=== PATIENT | male | born 1960 | race Caucasian/White ===

== ENCOUNTER 2016-08-01 11:33 | Emergency (ER) | payer MEDICAID ==
[~2016-08-01] VITALS: Ht 172.7 cm; Wt 72.6 kg
--- NOTE | 2016-08-01 11:48 | NUR ---
AAOX3, CAME TO ER C/O FOREIGN BODY IN THROAT S/P EATING DINNER YESTERDAYS. RESP IS EVEN AND UNLABORED WITH NAD NOTED. SPEAKS IN FULL SENTENCES. SKIN IS WARM AND DRY. AWAITING MD FOR EVAL.
[2016-08-01 11:49] VITALS: BP 103/52
--- NOTE | 2016-08-01 12:03 | NUR ---
PATIENT TRANSPORTED FOR CT VIA WHEELCHAIR.
--- NOTE | 2016-08-01 12:29 | NUR ---
Patient eloped from facility. ER MD notified.
--- NOTE | 2016-08-01 12:30 | NUR ---
PATIENT SPIT ON THE FLOOR. THE PATIENT WAS VERBALLY ABUSIVE, CURSING THE STAFF.
== END 2016-08-01 12:33 | disposition left against medical advice (07) ==
LOC: ER 11:36
DX: T17.228A Food in pharynx causing other injury, initial encounter (principal); F17.210 Nicotine dependence, cigarettes, uncomplicated; X58.XXXA Exposure to other specified factors, initial encounter; Y93.89 Activity, other specified; Y92.89 Other specified places as the place of occurrence of the external cause; Y99.8 Other external cause status
CPT/HCPCS: 70490; 99284; A4606; Z7610

== ENCOUNTER 2018-08-17 17:26 | Emergency (ER) | payer MEDICAID, OTHER ==
[~2018-08-17] VITALS: Ht 170.2 cm; Wt 74.8 kg
--- NOTE | 2018-08-17 17:28 | NUR ---
PT BIBRA FOR ABD PAIN TODAY D/T ETOH; PT AAOX4, PT ON MONITOR, VSS, NAD NOTED, PENDING MD CALLEJAS
[2018-08-17] MEDS ORDERED: MORPHINE SULFATE INJ 2 MG/ML DISP.SYRIN IV ONE ×2 (18:00→20:00)
[2018-08-17] MEDS ORDERED: IV NS 0.9% 1,000 ML BAG IV ONE ×2 (18:00→19:00)
[2018-08-17] MEDS ORDERED: ONDANSETRON HCL/PF 4 MG/2 ML VIAL IVP ONE (18:00)
[2018-08-17] MEDS ORDERED: ONDANSETRON HCL/PF 4 MG/2 ML VIAL ONE ×2 (18:05→19:43)
[2018-08-17] MEDS ORDERED: MORPHINE SULFATE INJ 4 MG/ML DISP.SYRIN ONE ×2 (18:06→19:44)
[2018-08-17 18:08] LABS: EOSINOPHILS % (AUTO) 0.5 % (0.0-6.0); HEMATOCRIT 41 % (39-51); LYMPHOCYTES # (AUTO) 1.5 /CMM (0.8-4.8); LYMPHOCYTES % (AUTO) 36.4 % (20.0-44.0); MEAN CORPUSCULAR HGB CONC 35 g/dl (31.0-36.0); MEAN CORPUSCULAR VOLUME 98 fL (80-96); MONOCYTES # (AUTO) 0.4 /CMM (0.1-1.30); MONOCYTES % (AUTO) 8.5 % (2.0-12.0); NEUTROPHILS # (AUTO) 2.2 /CMM (1.8-8.9); NEUTROPHILS % (AUTO) 53.6 % (43.0-81.0); PLATELET COUNT (AUTO) 108 /CMM (150-450); RED BLOOD CELL COUNT(AUTO) 4.16 MIL/uL (4.5-6.0); WHITE BLOOD COUNT (AUTO) 4.2 K/uL (4.3-11.0)
[2018-08-17 18:19] LABS: CALCIUM, SERUM 8.1 mg/dL (8.5-10.1); CREATININE 0.7 mg/dL (0.6-1.3); POTASSIUM 3.8 mmol/L (3.5-5.1)
[2018-08-17 18:31] LABS: ALBUMIN 3.5 g/dL (3.4-5.0); BILIRUBIN,DIRECT 0.6 mg/dL (0.0-0.2); BILIRUBIN,TOTAL 1.2 mg/dL (0.2-1.0); TOTAL PROTEIN, SERUM 7.5 g/dL (6.4-8.2)
[2018-08-17] MEDS ORDERED: Magnesium 1 GM/2 ML VIAL IV ONE (19:00)
[2018-08-17] MEDS ORDERED: HYDR-3973 PO (19:05)
[2018-08-17] MEDS ORDERED: ALBU18HF2 IH (19:06)
[2018-08-17] MEDS ORDERED: FOLI1TAB16 PO (19:06)
--- NOTE | 2018-08-17 19:21 | NUR ---
PAGED INFORMATION TECHNOLOGY PROJECT MANAGER DR ASHLI CRAIG)
[2018-08-17 19:39] LABS: APPEARANCE,URINE Clear (CLEAR); BILIRUBIN,URINE MODERATE (NEGATIVE); BLOOD, URINE Trace-intact Ery/uL (NEGATIVE); COLOR,URINE Orange (YELLOW); KETONES,URINE 80 (NEGATIVE); LEUKOCYTE ESTERASE ,URINE Negative (NEGATIVE); NITRITE, URINE Negative (NEGATIVE); PH,URINE 6.5 (5.0-8.0); PROTEIN,URINE >=300 mg/dl (NEGATIVE); UGLUCOSE Negative (NEGATIVE); UROBILINOGEN,URINE >=8.0 EU/dL (0.2)
[2018-08-17] MEDS ORDERED: Magnesium 1GM/D5W 100ML PREMIX 100 ML IV ONE (19:43)
[2018-08-17 19:51] LABS: BACTERIA,URINE Rare /HPF (None Seen); SQUAMOUS EPITHELIAL CELL,UR Few /HPF (None Seen); WBC,URINE NONE SEEN /HPF (0-3)
[2018-08-17] MEDS ORDERED: Magnesium 1GM/D5W 100ML PREMIX PIGGYBACK IV ONE (20:00)
[2018-08-17] MEDS ORDERED: ONDANSETRON HCL/PF - ER 4 MG/2 ML VIAL IV ONE (20:00)
--- NOTE | 2018-08-17 20:16 | NUR ---
PT RECIEVED BED AT [facility] ([id number]). REPORT WILL BE CALLED TO
[2018-08-17 20:21] LABS: ALCOHOL, BLOOD 335 mg/dL (0-0)
[2018-08-17 20:25] LABS: ACETAMINOPHEN < 2 ug/ml (10-30)
--- NOTE | 2018-08-17 20:29 | NUR ---
TRANSPORT ETA 1HR
[2018-08-17 21:00] VITALS: BP 154/76
--- NOTE | 2018-08-17 21:42 | NUR ---
PT LEFT VIA [facility] AMBULANCE TO [facility]. PT LEFT IN STABLE CONDITION, PT NAD NOTED, VSS, REPORT WAS GIVEN TO MARIANO AT [facility]. REPORT GIVEN TO AMBULANCE STAFF.
== END 2018-08-17 22:55 | disposition short-term general hospital (02) ==
LOC: ER 17:30
DX: K85.20 Alcohol induced acute pancreatitis without necrosis or infection (principal); R33.9 Retention of urine, unspecified; E83.42 Hypomagnesemia; F10.10 Alcohol abuse, uncomplicated; J43.9 Emphysema, unspecified; F17.210 Nicotine dependence, cigarettes, uncomplicated; Z79.899 Other long term (current) drug therapy; Z87.19 Personal history of other diseases of the digestive system; Z59.0 Homelessness
CPT/HCPCS: 36415; 51702; 71045; 76700; 80048; 80076; 80305; 80307; 80329; 81001; 83690; 83735; 84484; 85025; 87086; 93005; 96361; 96365; 96375; 96376; 99285; G0480; J2270 ×2; J2405 ×2; J3475; J7030 ×2; 81000-TC

== ENCOUNTER 2018-10-24 07:04 | Emergency (ER) | payer OTHER ==
[~2018-10-24] VITALS: Ht 172.7 cm; Wt 72.6 kg
[~2018-10-24 07:04] MED LIST: ALBU18HF2 IH; FOLI1TAB16 PO; HYDR-3973 PO
--- NOTE | 2018-10-24 07:06 | NUR ---
[id number] FROM STREETS C/C "FEEL A SEIZURE COMING", ALSO C/O SOB AND DIZZINESS. TO ER BED 12, HOOKED TO MONITOR, CHANGED TO GOWN, PROVIDED W WARM BLANKET, SEIZURE PRECAUTIONS APPLIED, AWAITING MD CALLEJAS
--- NOTE | 2018-10-24 07:26 | NUR ---
DR YOUNG AT BEDSIDE
[2018-10-24] MEDS ORDERED: CHLORDIAZEPOXIDE HCL 25 MG CAPSULE ONE (07:36)
[2018-10-24] MEDS ORDERED: CHLORDIAZEPOXIDE HCL 25 MG CAPSULE PO ONE (08:00)
[2018-10-24] MEDS ORDERED: ALBUTEROL SULFATE 8 GM HFA.AER.AD IH ONE (08:00)
[2018-10-24 08:51] VITALS: BP 128/76
--- NOTE | 2018-10-24 08:51 | NUR ---
Patient discharged to home in stable condition. Written and verbal after care instructions given. Patient verbalizes understanding of instruction.
== END 2018-10-24 08:52 | disposition home or self-care (01) ==
LOC: ER 07:08
DX: F10.239 Alcohol dependence with withdrawal, unspecified (principal); J44.9 Chronic obstructive pulmonary disease, unspecified; F19.10 Other psychoactive substance abuse, uncomplicated; F22 Delusional disorders; R56.9 Unspecified convulsions; F17.200 Nicotine dependence, unspecified, uncomplicated; Y90.9 Presence of alcohol in blood, level not specified; Z59.0 Homelessness; Z87.19 Personal history of other diseases of the digestive system; Z85.46 Personal history of malignant neoplasm of prostate

== ENCOUNTER 2018-10-24 10:06 | Emergency (ER) | payer MEDICAID, OTHER ==
[~2018-10-24] VITALS: Ht 172.7 cm; Wt 72.6 kg
--- NOTE | 2018-10-24 10:10 | NUR ---
PT SELF PRESENT TO ED BED 13. ACTING BIZZARE. STATES SUICIDAL, STATING "THEY ARE OUT TO GET ME. MIGHT WELL ." PT WAS BIB BY [facility] EARLIER AND WAS DISCHARGE. NO ACTIVE PLAN. AWAITING MD CALLEJAS.
--- NOTE | 2018-10-24 10:15 | NUR ---
PT WANDED. PLACED ON SI PRECAUTION. AWAITING MD CALLEJAS.
[2018-10-24] MEDS ORDERED: OLANZAPINE 10 MG VIAL IM ONE ×2 (10:20→10:30)
[2018-10-24 10:40] LABS: BASOPHILS # (AUTO) 0.1 /CMM (0.0-0.2); BASOPHILS % (AUTO) 1.3 % (0.0-2.0); EOSINOPHILS % (AUTO) 0.9 % (0.0-6.0); HEMATOCRIT 43 % (39-51); HEMOGLOBIN 14.7 g/dL (13.5-17.5); LYMPHOCYTES # (AUTO) 2.2 /CMM (0.8-4.8); LYMPHOCYTES % (AUTO) 30.8 % (20.0-44.0); MEAN CORPUSCULAR HGB CONC 34 g/dl (31.0-36.0); MEAN CORPUSCULAR VOLUME 102 fL (80-96); MONOCYTES # (AUTO) 0.8 /CMM (0.1-1.30); MONOCYTES % (AUTO) 11.7 % (2.0-12.0); NEUTROPHILS # (AUTO) 3.9 /CMM (1.8-8.9); NEUTROPHILS % (AUTO) 55.3 % (43.0-81.0); PLATELET COUNT (AUTO) 252 /CMM (150-450); RED BLOOD CELL COUNT(AUTO) 4.24 MIL/uL (4.5-6.0)
[2018-10-24 10:52] LABS: CALCIUM, SERUM 9.4 mg/dL (8.5-10.1); CARBON DIOXIDE 22 mmol/L (21-32); CHLORIDE 98 mmol/L (98-107); CREATININE 1.6 mg/dL (0.6-1.3); GLUCOSE 107 mg/dL (74-106); POTASSIUM 3.7 mmol/L (3.5-5.1); SODIUM SERUM 135 mmol/L (136-145); UREA NITROGEN, BLOOD 27 mg/dL (7-18)
[2018-10-24 10:58] LABS: ALANINE AMINOTRANSFERASE 42 U/L (12-78); ALBUMIN 4.3 g/dL (3.4-5.0); ALCOHOL, BLOOD < 3 mg/dL (0-0); ALKALINE PHOSPHATASE 106 U/L (46-116); ASPARTATE AMINOTRANSFERASE 63 U/L (15-37); BILIRUBIN,DIRECT 0.3 mg/dL (0.0-0.2); SALICYLATE 4.1 mg/dL (2.8-20.0); TOTAL PROTEIN, SERUM 8.3 g/dL (6.4-8.2)
[2018-10-24 11:02] LABS: ACETAMINOPHEN 0 ug/ml (10-30)
--- NOTE | 2018-10-24 11:38 | NUR ---
CALLED CHEMISTRY ASSOCIATE ( ART ), 1 HOUR ETA
[2018-10-24 11:49] LABS: APPEARANCE,URINE Clear (CLEAR); BILIRUBIN,URINE MODERATE (NEGATIVE); BLOOD, URINE Trace-intact Ery/uL (NEGATIVE); KETONES,URINE 15 (NEGATIVE); LEUKOCYTE ESTERASE ,URINE Trace (NEGATIVE); NITRITE, URINE Negative (NEGATIVE); PH,URINE 5.5 (5.0-8.0); PROTEIN,URINE 100 mg/dl (NEGATIVE); UGLUCOSE Negative (NEGATIVE); UROBILINOGEN,URINE 0.2 EU/dL (0.2)
[2018-10-24 11:50] LABS: COLOR,URINE AMBER (YELLOW)
[2018-10-24 11:51] LABS: BACTERIA,URINE Few /HPF (None Seen); SQUAMOUS EPITHELIAL CELL,UR Rare /HPF (None Seen)
--- NOTE | 2018-10-24 13:07 | NUR ---
ART SHORT STORY WRITER AT BEDSIDE FOR PSYCH EVAL.
--- NOTE | 2018-10-24 14:56 | NUR ---
PT GOING TO UNIT II. ADMITTING DR. DR CLOUD, RN TO RN- [phone]
--- NOTE | 2018-10-24 15:38 | NUR ---
TRANSPORT AMBULANCE ETA [id number]
[2018-10-24 16:20] VITALS: BP 100/69
--- NOTE | 2018-10-24 16:40 | NUR ---
REPORT GIVEN TO BÁRBARA CLEMENTS TRANSPORTED TO [facility] IN STABLE CONDITION.
== END 2018-10-24 16:42 ==
LOC: ER 10:07
DX: R45.851 Suicidal ideations (principal); F22 Delusional disorders; F19.10 Other psychoactive substance abuse, uncomplicated; F17.210 Nicotine dependence, cigarettes, uncomplicated; Z59.0 Homelessness; Z79.899 Other long term (current) drug therapy; Z85.46 Personal history of malignant neoplasm of prostate
CPT/HCPCS: 36415; 80048; 80076; 80307; 80329; 81001; 85025; 87086; 93005; 96372; 99285; J3490; 80305; 81000-TC; G0480

== ENCOUNTER 2019-07-16 16:16 | Emergency (ER) | payer MEDICARE, OTHER ==
[~2019-07-16] VITALS: Ht 172.7 cm; Wt 70.3 kg
--- NOTE | 2019-07-16 16:17 | NUR ---
BIB RA 39,BY-STANDER CALLED ,C/O ABDOMINAL PAIN AND SAID THAT HE'S BEEN DRINKING VODKA, TO ER BED 14, HOOKED TO MONITOR, PROVIDED W WARM BLANKET, AWAITING MD CALLEJAS.
--- NOTE | 2019-07-16 16:24 | NUR ---
DR DAVIS AT BEDSIDE
--- NOTE | 2019-07-16 16:29 | NUR ---
DR DAVIS AT BEDSIDE FOR EVAL.
[2019-07-16] MEDS ORDERED: LIDOCAINE VISCOUS 2% UD 15 ML UDC MM ONE (16:30)
[2019-07-16] MEDS ORDERED: MAG HYDROX/AL HYDROX/SIMETH 30 ML UDC PO ONE (16:30)
[2019-07-16 16:45] LABS: BASOPHILS % (AUTO) 0.7 % (0.0-2.0); EOSINOPHILS % (AUTO) 2.1 % (0.0-6.0); HEMATOCRIT 49 % (39-51); HEMOGLOBIN 15.8 g/dL (13.5-17.5); LYMPHOCYTES # (AUTO) 3.2 /CMM (0.8-4.8); LYMPHOCYTES % (AUTO) 57.5 % (20.0-44.0); MEAN CORPUSCULAR HGB CONC 32 g/dl (31.0-36.0); MEAN CORPUSCULAR VOLUME 101 fL (80-96); MONOCYTES # (AUTO) 0.5 /CMM (0.1-1.30); MONOCYTES % (AUTO) 9.3 % (2.0-12.0); NEUTROPHILS # (AUTO) 1.7 /CMM (1.8-8.9); NEUTROPHILS % (AUTO) 30.4 % (43.0-81.0); PLATELET COUNT (AUTO) 144 /CMM (150-450); RED BLOOD CELL COUNT(AUTO) 4.84 MIL/uL (4.5-6.0); WHITE BLOOD COUNT (AUTO) 5.5 K/uL (4.3-11.0)
[2019-07-16 16:53] LABS: CALCIUM, SERUM 8.4 mg/dL (8.5-10.1); CREATININE 0.6 mg/dL (0.6-1.3); POTASSIUM 3.6 mmol/L (3.5-5.1)
[2019-07-16 16:58] LABS: ALBUMIN 3.5 g/dL (3.4-5.0); BILIRUBIN,DIRECT 0.1 mg/dL (0.0-0.2); BILIRUBIN,TOTAL 0.3 mg/dL (0.2-1.0); TOTAL PROTEIN, SERUM 7.9 g/dL (6.4-8.2)
[2019-07-16] MEDS ORDERED: LIDOCAINE VISCOUS 2% UD 15 ML UDC ONE (17:06)
[2019-07-16] MEDS ORDERED: MAG HYDROX/AL HYDROX/SIMETH 30 ML UDC ONE (17:06)
--- NOTE | 2019-07-16 19:16 | NUR ---
PT RESTING COMFORTABLY. VSS. PT AWAKE.
[2019-07-16] MEDS ORDERED: CHLORDIAZEPOXIDE HCL 25 MG CAPSULE ONE (23:36)
--- NOTE | 2019-07-16 23:54 | NUR ---
Patient discharged to home in stable condition. Written and verbal after care instructions given. Patient verbalizes understanding of instruction. Pt ambulated with steady gait. Pt signed homeless discharge.
[2019-07-16 23:56] VITALS: BP 121/78
[2019-07-17] MEDS ORDERED: CHLORDIAZEPOXIDE HCL 25 MG CAPSULE PO ONE
== END 2019-07-16 23:57 | disposition home or self-care (01) ==
LOC: ER 16:16
DX: R10.13 Epigastric pain (principal); F10.20 Alcohol dependence, uncomplicated; Y90.9 Presence of alcohol in blood, level not specified; Z60.2 Problems related to living alone; Z85.46 Personal history of malignant neoplasm of prostate
CPT/HCPCS: 36415; 80048-TC; 80076-TC; 83690-TC; 85025-TC

== ENCOUNTER 2020-08-08 01:26 | Inpatient (IN) | payer MEDICARE, OTHER ==
[~2020-08-08] VITALS: Ht 172.7 cm; Wt 71.3 kg
--- NOTE | 2020-08-08 01:30 | NUR ---
pt bibRA c/o cp and sob. Per ems, pt had low saturation on scene. Pt aaox4 breathing evenly and rapidly. Pt brought in on 15L via NRB; saturated 92%. Pt is juandiced,skin war, dry, and intact. 18g left ac initiated CHEMICAL WEIGHER. Pt attached to night monitor and pox. pt placed in sitting position for comfort and ease of breathing. Pt given blanket and call light within reach
[2020-08-08] MEDS ORDERED: ALBUTEROL FS 2.5 MG/3 ML VIAL.NEB CONTNEB STA (01:32)
[2020-08-08] MEDS ORDERED: IPRATROPIUM NEB FS 0.5 MG/2.5 ML AMPUL.NEB NEB STA (01:32)
--- NOTE | 2020-08-08 01:44 | NUR ---
COVID SWAB SENT
--- NOTE | 2020-08-08 01:44 | NUR ---
blood and blood cultures obtained and sent to lab
[2020-08-08] MEDS ORDERED: VANCOMYCIN 1 GM VIAL ONE (01:45)
[2020-08-08] MEDS ORDERED: predniSONE 20 MG TABLET ONE (01:46)
[2020-08-08] MEDS ORDERED: PIPERACILLIN /TAZOBACTAM 3.375 G VIAL IV ONE (01:46)
[2020-08-08] MEDS ORDERED: IPRATROPIUM NEB FS 0.5 MG/2.5 ML AMPUL.NEB ONE (01:48)
[2020-08-08] MEDS ORDERED: ALBUTEROL FS 2.5 MG/3 ML VIAL.NEB ONE (01:48)
--- NOTE | 2020-08-08 01:50 | NUR ---
rt at bedside
--- NOTE | 2020-08-08 01:50 | NUR ---
Rafita raymond in [facility] - 08/08/20 at 0218 by SAM farnazay at bedside
[2020-08-08 01:58] LABS: BASOPHILS # (AUTO) 0.2 /CMM (0.0-0.2); EOSINOPHILS % (AUTO) 0.7 % (0.0-6.0); HEMATOCRIT 38 % (39-51); HEMOGLOBIN 12.7 g/dL (13.5-17.5); LYMPHOCYTES # (AUTO) 2.6 /CMM (0.8-4.8); LYMPHOCYTES % (AUTO) 22.3 % (20.0-44.0); MEAN CORPUSCULAR HGB CONC 34 g/dl (31.0-36.0); MEAN CORPUSCULAR VOLUME 110 fL (80-96); MONOCYTES # (AUTO) 1.6 /CMM (0.1-1.30); MONOCYTES % (AUTO) 13.9 % (2.0-12.0); NEUTROPHILS % (AUTO) 61.1 % (43.0-81.0); PLATELET COUNT (AUTO) 124 /CMM (150-450); RED BLOOD CELL COUNT(AUTO) 3.43 MIL/uL (4.5-6.0); WHITE BLOOD COUNT (AUTO) 11.5 K/uL (4.3-11.0)
[2020-08-08] MEDS ORDERED: IV NS 0.9% 1,000 ML BAG IV ONE (02:00)
[2020-08-08] MEDS ORDERED: VANCOMYCIN 1 GM in IV D5W 250 ML IV ONE (02:00)
[2020-08-08] MEDS ORDERED: predniSONE 20 MG TABLET PO ONE (02:00)
[2020-08-08] MEDS ORDERED: PIPERACILLIN /TAZOBACTAM 3.375 G in IV D5W 50 ML IV ONE (02:00)
[2020-08-08 02:08] LABS: CALCIUM, SERUM 6.5 mg/dL (8.5-10.1); CARBON DIOXIDE 17 mmol/L (21-32); CHLORIDE 96 mmol/L (98-107); CREATININE 2.3 mg/dL (0.6-1.3); GLUCOSE 142 mg/dL (74-106); POTASSIUM 3.2 mmol/L (3.5-5.1); SODIUM SERUM 131 mmol/L (136-145); UREA NITROGEN, BLOOD 24 mg/dL (7-18)
--- NOTE | 2020-08-08 02:17 | NUR ---
xray at bedside
[2020-08-08 02:25] LABS: ALANINE AMINOTRANSFERASE 49 U/L (12-78); ALBUMIN 2.1 g/dL (3.4-5.0); ALKALINE PHOSPHATASE 198 U/L (46-116); ASPARTATE AMINOTRANSFERASE 213 U/L (15-37); BILIRUBIN,DIRECT 25.6 mg/dL (0.0-0.2); BILIRUBIN,TOTAL 35.7 mg/dL (0.2-1.0); TOTAL PROTEIN, SERUM 7.1 g/dL (6.4-8.2)
--- NOTE | 2020-08-08 03:17 | NUR ---
MD WALTON SPEAKING WITH PROMISE
--- NOTE | 2020-08-08 03:26 | NUR ---
gave report to kolby Arriaga for marry
[2020-08-08] MEDS ORDERED: MAG HYDROX/AL HYDROX/SIMETH 30 ML UDC PO PRN (03:30)
[2020-08-08] MEDS ORDERED: ACETAMINOPHEN 325 MG TABLET PO PRN (03:30)
[2020-08-08] MEDS ORDERED: ZOLPIDEM TARTRATE 5 MG TABLET PO PRN (03:30)
[2020-08-08] MEDS ORDERED: HYDROCODONE/APAP 5/325MG TABLET PO PRN (03:30)
[2020-08-08] MEDS ORDERED: IV NS 0.9% 1,000 ML IV PRN (03:30)
[2020-08-08] MEDS ORDERED: POTASSIUM CHLORIDE 20 MEQ TAB.PRT.SR PO ONE ×2 (03:30→07:00)
[2020-08-08] MEDS ORDERED: ONDANSETRON HCL/PF 4 MG/2 ML VIAL IVP PRN (03:30)
[2020-08-08 04:00] VITALS: BP_SYST 128; BP_DIAS 71; BP_DIAS 79
--- NOTE | 2020-08-08 04:00 | NUR ---
ELECTRONIC INTEGRATED SYSTEMS MECHANIC NOTES SACRAL AND SCROTAL REDNESS FORM FECES NOTED,CLEANED WITH SOAP AND WATER AND APPLIED SKIN BARRIER PER PROTOCOL
--- NOTE | 2020-08-08 04:00 | NUR ---
HEEL CEMENTER MACHINESACK SORTER NOTES RECEIVED FROM ER PER TIAN,ALERT,ORIENTED X3,BREATHING NON LABORED,WITH DIAGNOSIS OF COPD EXACERBATION,SALINE LOCK LEFT AC INTACT AND PATENT.ABDOMEN DISTENDED,SKIN APPEARS YELLOWISH.WITHE REDNESS ON SACRAL AND SCROTAL AREA FROM FECES.FALL RISK,USE CANE FOR AMBULATION.BED ALARM TRIGGERED,BED ON LOWEST POSITION AND LOCKED.CALL LIGHT IN REACH,NEEDS ANTICIPATED.
--- NOTE | 2020-08-08 04:22 | NUR ---
FINAL INSPECTOR SHUTTLE NOTES SOLU-MEDROL 60MG IV GIVEN ORDERED
--- NOTE | 2020-08-08 04:22 | NUR ---
SPECIAL EDUCATION SUPERINTENDENT NOTES STARTED ON IVF NS AT 75ML/HR RATE,INFUSING VIA IV PUMP.
[2020-08-08] MEDS: methylPREDNISolone SOD SUCC 125 MG/2ML VIAL IV SCH ×3 (04:23→20:21)
--- NOTE | 2020-08-08 04:23 | NUR ---
FOOD SAFETY MANAGER NOTES K LEVEL 3.2,K DUR 40MG PO GIVEN,TAKEN WELL
[2020-08-08 05:00] LABS: BASOPHILS % (AUTO) 0.8 % (0.0-2.0); EOSINOPHILS % (AUTO) 0.1 % (0.0-6.0); HEMATOCRIT 36 % (39-51); HEMOGLOBIN 12.6 g/dL (13.5-17.5); LYMPHOCYTES # (AUTO) 0.4 /CMM (0.8-4.8); LYMPHOCYTES % (AUTO) 7.4 % (20.0-44.0); MEAN CORPUSCULAR HGB CONC 35 g/dl (31.0-36.0); MEAN CORPUSCULAR VOLUME 109 fL (80-96); MONOCYTES # (AUTO) 0.6 /CMM (0.1-1.30); MONOCYTES % (AUTO) 10.7 % (2.0-12.0); NEUTROPHILS # (AUTO) 4.9 /CMM (1.8-8.9); PLATELET COUNT (AUTO) 79 /CMM (150-450); RED BLOOD CELL COUNT(AUTO) 3.33 MIL/uL (4.5-6.0)
[2020-08-08 05:09] VITALS: BP 128/71
--- NOTE | 2020-08-08 05:25 | NUR ---
PET COUNSELOR NOTES RELAYED BY DAY CARE ASSISTANT,LACTIC ACID 8.6 AFTER GIVEN 2 LITERS OF NS IN ER.HOSPITALIST HARRIS DEJESUS MADE AWARE,NO NEW ORDER.
[2020-08-08 05:27] LABS: BILIRUBIN,TOTAL 33.7 mg/dL (0.2-1.0); CREATININE 2.3 mg/dL (0.6-1.3); PHOSPHORUS 2.6 mg/dL (2.5-4.9); TOTAL PROTEIN, SERUM 6.7 g/dL (6.4-8.2)
[2020-08-08 05:33] LABS: POTASSIUM 2.4 mmol/L (3.5-5.1)
--- NOTE | 2020-08-08 05:35 | NUR ---
FLATLOCK SEWING MACHINE OPERATOR NOTES VON FROM THE LAB CALLED,POTASSIUM LEVEL IS 2.4,MAGNESIUM LEVEL 1.0,CALCIUM 6.0.CRITICAL LAB RESULT RELAYED TO HOSPITALIST HARRIS,WITH NEW ORDERS NOTED AND CARRIED OUT.
[2020-08-08 05:43] LABS: LYMPHOCYTES % (MANUAL) 3 % (16-48); MONOCYTES % (MANUAL) 12 % (0-11.0); NEUTROPHILS % (MANUAL) 85 (42-76)
[2020-08-08 05:58] LABS: THYROID STIMULATING HORMONE 1.176 uIU/mL (0.358-3.74)
[2020-08-08] MEDS ORDERED: PIPERACILLIN /TAZOBACTAM 3.375 G in IV D5W 50 ML IV SCH (06:00)
--- NOTE | 2020-08-08 06:05 | NUR ---
CAN LINE EXAMINER NOTES BLOOD DRAW FOR REPEAT K LEVEL DONE BY LAB,AWAITING FOR RESULT.
[2020-08-08] MEDS: Magnesium 1GM/D5W 100ML PREMIX 100 ML IV SCH ×4 (06:16→10:02)
[2020-08-08] MEDS ORDERED: Z GUARD REMEDY 2 OZ OINT TP PRN (06:30)
--- NOTE | 2020-08-08 06:31 | NUR ---
WELLNESS AMBASSADOR CLOSING NOTES PATIENT IN BED, EYES CLOSED. A/OX4. ABLE TO MAKE NEEDS KNOWN. NO S/S OF DISTRESS NOTED. TOLERATING 4LPM OF OXYGEN VIA NC SATURATING 92%. PATIENT PAIN RELIEVED AFTER NON-PHARMACOLOGICAL INTERVENTION. ALL NEEDS ATTENDED. ALL ORDERED MEDS CARRIED OUT. TELE MONITOR READING SR 84 BPM. SAFETY PRECAUTIONS KEPT IN PLACE THE WHOLE TIME: BED IN LOWEST, LOCKED POSITION; CALL LIGHT WITHIN REACH. PICTURES TAKEN. WILL ENDORSE CARE TO MORNING RN.
--- NOTE | 2020-08-08 06:35 | NUR ---
COKE DRAWER HAND NOTES RELAYED BY CONSERVATION OR HERITAGE ARCHITECT VON,REPEAT K LEVEL IS 3.2,HOSPITALIST HARRIS MADE AWARE WITH NEW ORDER NOTED AND CARRIED OUT.
--- NOTE | 2020-08-08 06:59 | NUR ---
MARKETING PROGRAM MANAGER NOTES SECOND SALINE LOCK PLACE ON RIGHT FORE ARM #22,FLUSHED WITH NS AND KEPT PATENT.
--- NOTE | 2020-08-08 07:33 | NUR ---
IN STORE DEMONSTRATOR OPENING NOTES PATIENT IN BED, RESTING. A/OX4. ABLE TO MAKE NEEDS KNOWN AND AMBULATORY. NO S/S OF DISTRESS NOTED. TOLERATING 4LPM OF OXYGEN VIA NC SATURATING 92%. PATIENT IS SINUS RHYTHM READING 84 BPM. PATIENT'S SKIN INTACT. PATIENT HAS R AC 18 GAUGE PATENT AND INTACT. SAFETY PRECAUTIONS IN PLACE: BED IN LOWEST, LOCKED POSITION; CALL LIGHT WITHIN REACH. WILL CONTINUE TO MONITOR.
[2020-08-08 07:48] VITALS: BP 126/71
[2020-08-08] MEDS: ALBUTEROL FS 2.5 MG/0.5 ML VIAL.NEB NEB SCH ×4 (07:48→19:55)
[2020-08-08] MEDS: IPRATROPIUM NEB FS 0.5 MG/2.5 ML AMPUL.NEB NEB SCH ×4 (07:48→19:55)
[2020-08-08] MEDS: THIAMINE HCL 100 MG TABLET PO SCH (08:32)
[2020-08-08] MEDS: NICOTINE PATCH (21MG) 21 MG PATCH.TD24 TD SCH (08:32)
[2020-08-08] MEDS: MULTIVITAMINS,THERAGRAN 1 UDTAB TABLET PO SCH (08:32)
[2020-08-08] MEDS: FOLIC ACID 1 MG TABLET PO SCH (08:32)
[2020-08-08] MEDS: PIPERACILLIN /TAZOBACTAM 3.375 G in IV D5W 100 ML IV SCH ×2 (09:07→16:22)
--- NOTE | 2020-08-08 09:48 | NUR ---
RN NOTES PATIENT WAS SEEN BY DR. MONTEMAYOR W/ ORDER FOR US-GUIDED PARACENTESIS SECONDARY TO ASCITES; PROCEDURE WAS EXPLAINED TO PATIENT, VERBALIZED UNDERSTANDING AND REASON FOR PROCEDURE, AND CONSENT FORM WAS SIGNED.
[2020-08-08] MEDS: ALBUMIN 25% 25 GM in PREMIX 1 EA IV SCH ×2 (11:35→18:03)
--- NOTE | 2020-08-08 13:13 | NUR ---
contacted radiologist power distribution engineer, Dr. Markham. As per procedure has to be postponed as INR is elevated
--- NOTE | 2020-08-08 13:18 | NUR ---
RN NOTES RECEIVED A CALL FROM RADIOLOGY. THEY STATED THAT THE PARACENTESIS GUIDED ULTRASOUND COULD NOT BE PERFORMED DUE TO INR RESULT. WILL WAIT TILL LABS STABILIZE. WILL INFORM PATIENT.
[2020-08-08 16:20] VITALS: BP 145/85
--- NOTE | 2020-08-08 16:36 | NUR ---
CALLED RN TO NOTIFY THE ELEVATED CREATININE 2.[address] PULMONARY ANGIOGRAM WITH CONTRAST.
--- NOTE | 2020-08-08 18:47 | NUR ---
MS RN CLOSING NOTES PATIENT IN BED, RESTING. A/OX4. ABLE TO MAKE NEEDS KNOWN AND AMBULATORY. NO S/S OF DISTRESS NOTED. TOLERATING 4LPM OF OXYGEN VIA NC SATURATING 92%. PATIENT'S SKIN INTACT NOTED WITH BUTTOCK/ SCROTUM REDNESS AND LEFT SHOULDER REDNESS. PATIENT HAS L AC 18 GAUGE PATENT AND INTACT. INFUSING ZOSYN WHICH WILL BE DONE @ 820 WILL ENDORSE TO NEXT SHIFT. NEEDS MET THROUGHOUT SHIFT. SAFETY PRECAUTIONS IN PLACE: BED IN LOWEST, LOCKED POSITION; CALL LIGHT WITHIN REACH. WILL ENDORSE TO NEXT SHIFT
--- NOTE | 2020-08-08 19:47 | NUR ---
INTERNAL WHOLESALER OPENING NOTES PATIENT IN BED, RESTING. A/OX4. BROTHER IN THE ROOM WITH PATIENT AND DROPPED OFF SOME BELONGINGS AND VALUABLES. KEPT AND LOCKED AWAY. ABLE TO MAKE NEEDS KNOWN. NO S/S OF DISTRESS NOTED. TOLERATING 4LPM OF OXYGEN VIA NC. PATIENT HAS R AC 18 GAUGE PATENT AND INTACT. SAFETY PRECAUTIONS IN PLACE: BED IN LOWEST, LOCKED POSITION; CALL LIGHT WITHIN REACH. WILL CONTINUE TO MONITOR.
[2020-08-08 20:00] VITALS: BP 155/89
--- NOTE | 2020-08-08 20:00 | NUR ---
MS RN NOTES FRIEND NAME KRISTOPHER BATES AT BEDSIDE,BROUGHT BACK TO HOME SOME OF PATIENT BELONGINGS INCLUDING WALLET,SCHMIDT AND FOUR CARDS( SSS,AARP,DL,INSURANCE CARD) PUT IN SAFE AT NURSING FOUNTAIN ROLLER ASSEMBLER OFFICE.
[2020-08-08 20:12] VITALS: BP 155/89
--- NOTE | 2020-08-08 20:15 | NUR ---
MS RN NOTES RT AT BEDSIDE ADMINISTERING BREATHING TREATMENT SCHEDULED.
[2020-08-08] MEDS: MORPHINE SULFATE INJ 2 MG/ML DISP.SYRIN IV PRN (20:32)
--- NOTE | 2020-08-08 20:32 | NUR ---
MS RN NOTES C/O ABDOMINAL PAIN 8/10 ON PAIN SCALE,MEDICATED WITH MORPHINE 2MG IV ORDERED FOR SEVERE PAIN.O2 SAT 99%,BP 155/84.
[2020-08-09] VITALS (19 sets, daily range): BP systolic 79–118; BP diastolic 52–89
[2020-08-09] MEDS: PIPERACILLIN /TAZOBACTAM 3.375 G in IV D5W 100 ML IV SCH ×3 (00:38→17:24)
[2020-08-09] MEDS: VANCOMYCIN 1 GM in IV D5W 250 ML IV SCH (01:39)
[2020-08-09] MEDS: LORAZEPAM INJ 2 MG/ML VIAL IV PRN (03:06)
--- NOTE | 2020-08-09 03:13 | NUR ---
MS RN NOTES PER PATIENT HE CANNOT SLEEP AND ANXIOUS. REQUESTED SLEEP MEDICATION. GIVEN ATIVEN AT 0310. WILL REASSESS AND CONTINUE TO MONITOR.
[2020-08-09] MEDS: ALBUMIN 25% 25 GM in PREMIX 1 EA IV SCH (03:38)
[2020-08-09] MEDS: methylPREDNISolone SOD SUCC 125 MG/2ML VIAL IV SCH ×3 (04:56→21:12)
[2020-08-09 06:29] LABS: BASOPHILS % (AUTO) 0.2 % (0.0-2.0); HEMATOCRIT 36 % (39-51); HEMOGLOBIN 12.2 g/dL (13.5-17.5); LYMPHOCYTES # (AUTO) 0.4 /CMM (0.8-4.8); LYMPHOCYTES % (AUTO) 6.2 % (20.0-44.0); MEAN CORPUSCULAR HGB CONC 34 g/dl (31.0-36.0); MEAN CORPUSCULAR VOLUME 110 fL (80-96); MONOCYTES # (AUTO) 0.5 /CMM (0.1-1.30); MONOCYTES % (AUTO) 7.4 % (2.0-12.0); NEUTROPHILS # (AUTO) 5.7 /CMM (1.8-8.9); NEUTROPHILS % (AUTO) 86.2 % (43.0-81.0); PLATELET COUNT (AUTO) 60 /CMM (150-450); RED BLOOD CELL COUNT(AUTO) 3.25 MIL/uL (4.5-6.0); WHITE BLOOD COUNT (AUTO) 6.6 K/uL (4.3-11.0)
--- NOTE | 2020-08-09 06:44 | NUR ---
MS RN CLOSING NOTES PATIENT IN BED WITH EYES CLOSED. BARELY SLEPT. ATIVAN GIVEN PRN. PATIENT ABLE TO MAKE NEEDS KNOWN. NO S/S OF RESPIRATORY DISTRESS. TOLERATING 6LPM OF OXYGEN VIA NC. NO C/O PAIN. PATIENT BEEN COMPLAINING OF PAIN/ FULLNESS IN THE ABDOMEN, GIVEN MORPHINE ONE TIME AT 2031. ALL SCHEDULED MEDS ADMINISTERED. ALL NEEDS ATTENDED. SAFETY PRECAUTIONS KEPT ALL TIME: BED IN LOWEST AND LOCKED POSITION, CALL LIGHT WITHIN REACH. NO SIGNIFICANT CHANGES SINCE LAST SHIFT. WILL ENDORSE CARE TO MORNING NURSE.
[2020-08-09] MEDS: ALBUTEROL FS 2.5 MG/0.5 ML VIAL.NEB NEB SCH ×4 (07:35→19:39)
[2020-08-09] MEDS: IPRATROPIUM NEB FS 0.5 MG/2.5 ML AMPUL.NEB NEB SCH ×4 (07:35→19:39)
[2020-08-09 07:51] LABS: ALBUMIN 2.8 g/dL (3.4-5.0); BILIRUBIN,DIRECT 25.3 mg/dL (0.0-0.2); BILIRUBIN,TOTAL 36.7 mg/dL (0.2-1.0); CALCIUM, SERUM 7.1 mg/dL (8.5-10.1); CREATININE 2.3 mg/dL (0.6-1.3); PHOSPHORUS 2.3 mg/dL (2.5-4.9); POTASSIUM 3.1 mmol/L (3.5-5.1); TOTAL PROTEIN, SERUM 6.7 g/dL (6.4-8.2)
--- NOTE | 2020-08-09 08:00 | NUR ---
RN OPENING NOTE PATIENT ASLEEP IN BED. AROUSABLE TO HEAVY TOUCH. DROWSINESS NOTED. CURRENTLY WITH 6L O2 VIA NC. NO RESPIRATORY DISTRESS PRESENT. ON BEDREST WITH DIAPER PRESENT. SACRAL REDNESS PRESENT. IV PRESENT. SAFETY MEASURES IN PLACE. SIDE RAILS RAISED. BED LOWERED. CALL LIGHT WITHIN REACH. WILL CONTINUE TO MONITOR.
[2020-08-09 08:21] LABS: ABG BASE EXCESS -7.5 mmol/L; ABG OXYGEN SATURATION 99.1 % (92.0-98.5); ABG PCO2 21.6 mmHg (35.0-45.0); ABG PH 7.448 (7.350-7.450); ABG PO2 135.6 mmHg (75.0-100.0); AaDO2 67.3 mmHg; COHb 1.6 % (0.5-1.5); MetHb 0.3 % (0.0-1.5); O2Hb 97.2 % (94.0-97.0); SITE, ABG Right Radial; VENT MODE, BG 3L NC
[2020-08-09] MEDS ORDERED: ADENOSINE 6 MG/2 ML VIAL ONE (08:23)
--- NOTE | 2020-08-09 08:38 | NUR ---
NEWSPERSON NOTE PATIENT TRANSFERRED TO ICU. HR OF 170, MONITOR READING OF SVT. MD NOTIFIED. PATIENT TRANSFERRED TO BED 261-1 VIA PROTOCOL. REPORT GIVEN TO ICU NURSE FOR CECILIO.
[2020-08-09] MEDS: THIAMINE HCL 100 MG TABLET PO SCH (08:58)
[2020-08-09] MEDS: FOLIC ACID 1 MG TABLET PO SCH (08:58)
[2020-08-09] MEDS: MULTIVITAMINS,THERAGRAN 1 UDTAB TABLET PO SCH (08:58)
[2020-08-09] MEDS: NICOTINE PATCH (21MG) 21 MG PATCH.TD24 TD SCH (08:59)
--- NOTE | 2020-08-09 09:00 | NUR ---
ICU/RN PT TRANSFERED FROM M/S UNIT. WITH HR-180 BPM SVT.ADENOSINE 1 DOSE GIVEN ORDERED. EKG DONE .PT IS SINUS TACHYCARDIA 105 NOW.PT IS AWAKE ,CONFUSED.NEW PERIFERAL IV INSERTED.F/C INSERTED.NO URINE OUTPUT.PT IS ON 3L N/C SAT O2-91-93%.BP STABLE ,AFEBRILE.NO PAIN REPORTED AT THIS TIME.UNABLE TO SWALLOW AM MEDS .REDNESS ON RAFAT AREA AND LOWER BACK NOTED.LABS REVIEW. NOTIFIED.NEW ORDERS RECEIVED.CONTINUE TO MONITOR.
[2020-08-09 09:18] LABS: SERUM AMMONIA 99 umol/L (11-32)
[2020-08-09] MEDS: POTASSIUM CL. PREMIX PERIPHER. 50 ML IV SCH ×3 (10:29→12:23)
--- NOTE | 2020-08-09 10:51 | NUR ---
WOUND CARE CONSULT: PT PRESENTS WITH RASH/REDNESS TO SCROTUM AND PERINEUM, PRESENT ON ADMISSION. PT NOTED TO HAVE VERY JAUNDICED SKIN. RECOMMENDATIONS MADE FOR SKIN PROTECTION. DISCUSSED WITH NURSING STAFF. PT IS ON [facility] BED. IN AGREEMENT WITH PLAN OF CARE. Addendum: 08/09/20 at 1053 by JEWEL BLUM WNDNU Amended: Links added.
[2020-08-09] MEDS: CLOTRIMAZOLE 1% 15 GM TUBE TP SCH (11:46)
[2020-08-09] MEDS ORDERED: K PHOS NEUTRAL 250 MG TABLET PO ONE (12:00)
[2020-08-09] MEDS: IV NS 0.9% 1,000 ML IV PRN (12:25)
--- NOTE | 2020-08-09 13:38 | NUR ---
ICU/RN POTASSIUM IV REPLACED ORDERED.NO URINE OUTPUT.
--- NOTE | 2020-08-09 16:00 | NUR ---
ICU/RN NEW F/C PLACED WITH BILE COLOR URINE OUTPUT .PM CARE PROVIDED.TALK TO THE FATHER MAIDA PATEL.HE IS AWARE OF PATIENT CRITICAL CONDITION AND POOR PROGNOSIS .PLACE HIM TO DNR/DNI CODE STATUS. MD NOTIFIED.PT IS LETHARGIC.OPEN HIS EYES NOT FOLLOWS COMMAND. CONTINUE MONITORING.
[2020-08-09 19:12] LABS: CREATININE, URINE 125.3 MG/DL (30.0-125.0)
[2020-08-09 19:25] LABS: BILIRUBIN,URINE LARGE (NEGATIVE); COLOR,URINE AMBER (YELLOW); LEUKOCYTE ESTERASE ,URINE NEGATIVE (NEGATIVE); NITRITE, URINE NEGATIVE (NEGATIVE); PH,URINE 6.5 (5.0-8.0); PROTEIN,URINE TRACE mg/dl (NEGATIVE); UGLUCOSE NEGATIVE (NEGATIVE)
--- NOTE | 2020-08-09 19:30 | NUR ---
RN NOTE RECEIVED PT IN BED, OPEN EYES NOT FOLLOWING ANY COMMANDS. ON O2 VIA NC AT 3L. NO SIGNS OF DISTRESS NOTED. HOB ELEVATED. PT SKIN JAUNDICE. NO SIGNS OF PAIN OR DISCOMFORT. NS RUNNING AT 75 ML/HR. IV PATENT AND INTACT. WITH MADRID CATH IN PLACE, WITH DARK YELLOW/TONY URINE OUTPUT. ALL SAFETY MEASURES IMPLEMENTED. WILL CONTINUE TO MONITOR.
[2020-08-09 19:32] LABS: BACTERIA,URINE Few /HPF (None Seen); SQUAMOUS EPITHELIAL CELL,UR Few /HPF (None Seen); WBC,URINE 0-2 /HPF (0-3)
[2020-08-09 19:33] LABS: COARSE GRANULAR CASTS,URINE Few /LPF (None Seen); EOSINOPHIL,URINE None Seen; HYALINE CASTS, URINE Few /LPF (None Seen)
[2020-08-10] VITALS (32 sets, daily range): BP systolic 83–143; BP diastolic 53–88
--- NOTE | 2020-08-10 00:51 | NUR ---
RN NOTE PT O2 SAT AT 87-88% ON 3L NC. NO SIGNS OF DISTRESS NOTED. RT NOTIFIED, RT CHANGED O2 TO VENTURI MASK AT 12L, 40%. WITH O2 SAT OF 90%.
[2020-08-10] MEDS: IV NS 0.9% 1,000 ML IV PRN ×2 (00:57→17:37)
[2020-08-10] MEDS: PIPERACILLIN /TAZOBACTAM 3.375 G in IV D5W 100 ML IV SCH ×3 (01:23→16:28)
[2020-08-10] MEDS: VANCOMYCIN 1 GM in IV D5W 250 ML IV SCH (02:45)
--- NOTE | 2020-08-10 04:40 | NUR ---
RN NOTE PT WENT TO SVT WITH HR OF 177 AFTER THEY DID CXRAY AT BEDSIDE. BP 118/76. VETERINARY SCIENCE TEACHER RESISTANCE MACHINE WELDER SETTER CHIP NOTIFIED REGARDING PT CONDITION ALSO NOTIFIED THAT PPT HAD EPISODE OF SVT YESTERDAY. ROMELIA SAUNDERS ORDERED METOPROLOL 5MG IVP AND ATIVAN 1MG IVP X 1 NOW. ORDER NOTED AND CARRIED OUT. CHARGE NURSE MADE AWARE. WILL CONTINUE TO MONITOR.
[2020-08-10] MEDS ORDERED: METOPROLOL TARTRATE INJ 5 MG/5 ML AMPUL IVP ONE (04:45)
[2020-08-10] MEDS ORDERED: LORAZEPAM INJ 2 MG/ML VIAL IV ONE (04:45)
[2020-08-10] MEDS: methylPREDNISolone SOD SUCC 125 MG/2ML VIAL IV SCH ×3 (04:52→20:04)
[2020-08-10 05:08] LABS: PTH, INTACT 119 pg/mL (15-65)
[2020-08-10 05:33] LABS: CALCIUM, SERUM 6.8 mg/dL (8.5-10.1); CREATININE 2.1 mg/dL (0.6-1.3); PHOSPHORUS 1.3 mg/dL (2.5-4.9); POTASSIUM 3.1 mmol/L (3.5-5.1)
--- NOTE | 2020-08-10 05:46 | NUR ---
RN NOTE METOPROLOL 5MG IV AND ATIVAN 1MG GIVEN AT 0446. STILL SVT WITH HR 161. NOTIFIED ADMIN ASST CHIP, ORDERED STAT EKG AND TROPONIN AND FOLLOW UP WITH SHODDY MILL WORKER. ORDER NOTED AND CARRIED OUT. WILL CONTINUE TO MONITOR.
--- NOTE | 2020-08-10 05:56 | NUR ---
RT NOTE NASOTRACHEAL SUCTION PERFORMED ON PATIENT. MODERATE BLOODY THICK SECRETIONS NOTED. RN MARY AT BEDSIDE. PT CURRENTLY ON 40% VENTURI MASK.
--- NOTE | 2020-08-10 06:04 | NUR ---
RT NOTE PLACED PT ON NONREBREATHER MASK 100% DUE TO INCREASED WOB AND LOW SPO2. RN MARY AWARE.
--- NOTE | 2020-08-10 06:53 | NUR ---
RN NOTE PT HR AT 163, SVT. NO SIGNS OF DISTRESS NOTED. PT PLACED ON NONREBREATHER BY RT, TOLERATING WITH O2SAT AT 97%. PT WITH MINIMAL BLOODY SECRETIONS WHEN SUCTIONED BY RT. BP STABLE. MADRID INDWELLING WELL WITH DARK YELLOW/TONY URINE. CONTINUE ON IVF NS AT 75 ML/HR NO SIGNS OF INFILTRATION NOTED. WILL ENDORSE TO NEXT SHIFT NURSE FOR CECILIO.
[2020-08-10] MEDS: IPRATROPIUM NEB FS 0.5 MG/2.5 ML AMPUL.NEB NEB SCH ×4 (07:10→19:43)
[2020-08-10] MEDS: ALBUTEROL FS 2.5 MG/0.5 ML VIAL.NEB NEB SCH ×4 (07:11→19:43)
--- NOTE | 2020-08-10 07:25 | NUR ---
ICU/RN PT IS ON NRM -15L,SAT O2-96%.PT HAS SVT HR-160-170 BPM.MD NOTIFIED.NON RESPONSIVE.IV INFUSING ORDERED.F/C DRAINING WITH BILE COLOR URINE .LABS REVIEW.MD NOTIFIED.
--- NOTE | 2020-08-10 07:50 | NUR ---
ICU/RN ADENOSINE 6MG IV PUSH GIVEN ORDERED.CONVERTED TO SINUS TACHYCARDIA 105-110 BPM.CONTINUE MONITORING.
[2020-08-10] MEDS ORDERED: ADENOSINE 6 MG/2 ML VIAL IVP ONE (08:00)
[2020-08-10] MEDS: FOLIC ACID 1 MG TABLET PO SCH (08:03)
[2020-08-10] MEDS: MULTIVITAMINS,THERAGRAN 1 UDTAB TABLET PO SCH (08:03)
[2020-08-10] MEDS: THIAMINE HCL 100 MG TABLET PO SCH (08:03)
[2020-08-10] MEDS: NICOTINE PATCH (21MG) 21 MG PATCH.TD24 TD SCH (08:27)
[2020-08-10] MEDS: MUPIROCIN OINT 2% 22 GM TUBE NS SCH ×2 (08:28→20:05)
[2020-08-10] MEDS: CLOTRIMAZOLE 1% 15 GM TUBE TP SCH ×2 (08:28→16:29)
[2020-08-10] MEDS: MORPHINE SULFATE INJ 2 MG/ML DISP.SYRIN IV PRN ×3 (08:51→15:24)
--- NOTE | 2020-08-10 09:00 | NUR ---
ICU/RN DR ACUNA AND DR CHUA SEEN THE PT.NEW ORDERS RECEIVED.MORPHINE SULFATE 2 MG IV GIVEN ORDERED.
[2020-08-10] MEDS: POTASSIUM CL. PREMIX PERIPHER. 50 ML IV SCH ×2 (09:21→10:19)
[2020-08-10] MEDS ORDERED: NEUTRA PHOS 1 POWD.PACKET PO ONE (11:30)
--- NOTE | 2020-08-10 12:00 | NUR ---
ICU/KNOCK UP ASSEMBLER AT BEDSIDE.PATIENT IS NON-RESPONSIVE.FAMILY UNDERSTAND HIS CONDITION AND PROGNOSES.ALL VALUABLE MONEY,CREDIT CARD,ID ,CELL PHONE,USER EXPERIENCE TEAM LEAD AND CLOSE GIVEN TO THE MOTHER GLENNA PATEL AND FATHER MAIDA PATEL PHONE # [phone]. PROPERTY FORM SIGN AND PLACET TO THE CHART.
[2020-08-10] MEDS: LORAZEPAM INJ 2 MG/ML VIAL IV PRN ×2 (14:16→22:45)
[2020-08-10] MEDS: MORPHINE SULFATE INJ 4 MG/ML DISP.SYRIN IV PRN ×2 (17:44→21:08)
--- NOTE | 2020-08-10 18:09 | NUR ---
ICU/RN PM CARE PROVIDED.WOUND DRESSING DONE ORDERED.MORPHINE SULFATE IV GIVEN ORDERED .
--- NOTE | 2020-08-10 19:00 | NUR ---
DIVER HELPER OPENING NOTE RECEIVED PATIENT IN BED NON RESPONSIVE EYE CLOSED ,NPO ON 15L NON REBREATHER MASK O2:93% ON IV NORMAL SALINE HYDRATION @ 75CC/HR IV SITES ARE LEFT AC AND RIGHT AC INTACT PATENT,MADRID IN PLACE, URINE DRAINING DARK YELLOW,SAFETY MEASURE IMPLEMENT,BED IN LOW POSITON AND LOCKED CONTINUE TO MONITOR.
[2020-08-11] VITALS (17 sets, daily range): BP systolic 95–131; BP diastolic 62–83
[2020-08-11] MEDS: PIPERACILLIN /TAZOBACTAM 3.375 G in IV D5W 100 ML IV SCH ×3 (00:19→16:13)
[2020-08-11] MEDS: MORPHINE SULFATE INJ 4 MG/ML DISP.SYRIN IV PRN ×2 (01:04→03:19)
[2020-08-11] MEDS: VANCOMYCIN 1 GM in IV D5W 250 ML IV SCH (01:21)
[2020-08-11] MEDS ORDERED: methylPREDNISolone SOD SUCC 125 MG/2ML VIAL ONE (04:35)
[2020-08-11] MEDS: methylPREDNISolone SOD SUCC 125 MG/2ML VIAL IV SCH ×3 (04:38→20:44)
[2020-08-11 04:55] LABS: CALCIUM, SERUM 6.6 mg/dL (8.5-10.1); CREATININE 2.4 mg/dL (0.6-1.3); PHOSPHORUS 2.4 mg/dL (2.5-4.9); POTASSIUM 3.3 mmol/L (3.5-5.1)
[2020-08-11] MEDS: LORAZEPAM INJ 2 MG/ML VIAL IV PRN (05:01)
[2020-08-11 06:07] LABS: *SPE A/G RATIO 0.8 (0.7-1.7); *SPE ALPHA-1-GLOBULIN 0.2 g/dL (0.0-0.4); *SPE ALPHA-2-GLOBULIN 0.4 g/dL (0.4-1.0); *SPE BETA GLOBULIN 0.9 g/dL (0.7-1.3); *SPE GLOBULIN, TOTAL 3.6 g/dL (2.2-3.9); *SPE M-SPIKE Not Observed g/dL (Not Observed); *SPEGAMMA GLOBULIN 2.1 g/dL (0.4-1.8)
--- NOTE | 2020-08-11 06:44 | NUR ---
DYE RANGE FEEDER CLOSING NOTE PATIENT REMAINS ON NON RESPONSIVE EYE CLOSED ,NPO ON 15L NON REBREATHER MASK O2:98% ON IV NORMAL SALINE HYDRATION @ 75CC/HR IV SITES ARE LEFT AC AND RIGHT AC INTACT PATENT,MADRID IN PLACE, URINE DRAINING DARK YELLOW,ATIVAN 2MG/1ML PRN EVERY 6 HOURS GIVEN AND MORPHINE 4MG/ML PRN,GIVEN FOR PAIN MANAGEMENT,KEPT CLEAN AND DRY ALL THE TIME HEAD OF THE BED ELEVATED,ALL IV MEDS GIVEN ENDORSE NEXT COMING SHIFT FOR CONTINUATION OF CARE,
[2020-08-11] MEDS: IPRATROPIUM NEB FS 0.5 MG/2.5 ML AMPUL.NEB NEB SCH ×4 (07:15→20:28)
[2020-08-11] MEDS: ALBUTEROL FS 2.5 MG/0.5 ML VIAL.NEB NEB SCH ×4 (07:16→20:28)
--- NOTE | 2020-08-11 07:30 | NUR ---
CLINICAL ASSISTANT PROFESSOR OPENING NOTE RECEIVED PATIENT IN BED, NON RESPONSIVE AT THIS TIME. PATIENT CURRENTLY ON 15L NON REBREATHER MASK. O2 SATURATION 98%. PATIENT CURRENTLY ON NPO STATUS. PATIENT HAS IV SITES ON LEFT AC, RIGHT AC, AND R FOREARM. ALL IV SITES INTACT AND PATENT. PATIENT CURRENTLY HAS NORMAL SALINE RUNNING 75ML/HR FOR HYDRATION. MADRID CATHETER IN PLACE DRAINING DARK TONY OUTPUT. ALL SAFETY MEASURES IN PLACE PER HOSPITAL POLICY. BED LOCKED IN LOWEST POSITION. HOB AT 40 DEGREES ORDERED BY MD. CALL LIGHT WITHIN REACH. WILL CONTINUE TO MONITOR AND PROVIDE TREATMENT.
--- NOTE | 2020-08-11 07:50 | NUR ---
RT PATIENT UNABLE TO TOLERATE HHN TX AND REQUIRES NRB MASK TO BE ON AT ALL TIMES.
[2020-08-11] MEDS: IV NS 0.9% 1,000 ML IV PRN (08:17)
[2020-08-11] MEDS: MUPIROCIN OINT 2% 22 GM TUBE NS SCH ×2 (08:49→21:40)
[2020-08-11] MEDS: CLOTRIMAZOLE 1% 15 GM TUBE TP SCH ×2 (08:50→18:11)
[2020-08-11] MEDS ORDERED: POTASSIUM CL. PREMIX PERIPHER. 50 ML IV SCH (10:30)
--- NOTE | 2020-08-11 10:40 | NUR ---
patient transferred to room 315-1, report given to KEYUR Clemons for marry.
[2020-08-11] MEDS ORDERED: Sodium Phosphate 15 MMOL in IV NS 0.9% 245 ML IV SCH (11:00)
--- NOTE | 2020-08-11 18:18 | NUR ---
RN NOTES PATIENT SLEPT ALL DAY SHIFT, NEVER SPOKE A WORD, ALL MD ORDERS CARRIED OUT, IV SITES INTACT PATENT, NO IRRITATION, NO INFILTRATION NOTED, REPOSITIONED Q 2 HOURS, COMFORT MEASURES APPLIED, OXYGEN ORDER OF 15 LPM CONTINUOUS VIA NC INTACT, CALL LIGHT IN REACH, ALL NEEDS MET IN A TIMELY MANNER, KEPT CLEAN AND DRY.
--- NOTE | 2020-08-11 19:30 | NUR ---
MS RN OPENING NOTES PATIENT IN BED WITH EYES CLOSED. TOLERATING NON-REBREATHER MASK IN 15LPM. MADRID CATH IN PLACE DRAINING TONY URINE WITH SEDIMENTS. NO C/O PAIN AT THE MOMENT. VERY JAUNDICE. R. AC AND L. AC IN PLACE RUNNING NS @75 ML/HR. SAFETY PRECAUTIONS IN PLACE: BED IN LOWEST LOCKED POSITION, CALL LIGHT WITHIN REACH. WILL CONTINUE TO MONITOR.
[2020-08-12] MEDS: PIPERACILLIN /TAZOBACTAM 3.375 G in IV D5W 100 ML IV SCH (01:45)
[2020-08-12] MEDS: VANCOMYCIN 1 GM in IV D5W 250 ML IV SCH (02:00)
--- NOTE | 2020-08-12 02:13 | NUR ---
MS RN NOTES CALLED PHARMACY FOR THE RECENT VANCO THROUGH LEVEL 08/12 @0103 OF 27. PHARMACIST, [place] SAID TO HOLD THE VANCOMYCIN IV.
[2020-08-12] MEDS: methylPREDNISolone SOD SUCC 125 MG/2ML VIAL IV SCH (05:22)
[2020-08-12 06:58] LABS: BASOPHILS % (AUTO) 0.2 % (0.0-2.0); EOSINOPHILS % (AUTO) 0.6 % (0.0-6.0); HEMATOCRIT 31 % (39-51); HEMOGLOBIN 10.9 g/dL (13.5-17.5); LYMPHOCYTES # (AUTO) 0.5 /CMM (0.8-4.8); LYMPHOCYTES % (AUTO) 4.6 % (20.0-44.0); MEAN CORPUSCULAR HGB CONC 36 g/dl (31.0-36.0); MEAN CORPUSCULAR VOLUME 111 fL (80-96); MONOCYTES # (AUTO) 0.7 /CMM (0.1-1.30); MONOCYTES % (AUTO) 6.2 % (2.0-12.0); NEUTROPHILS # (AUTO) 9.4 /CMM (1.8-8.9); NEUTROPHILS % (AUTO) 88.4 % (43.0-81.0); PLATELET COUNT (AUTO) 66 /CMM (150-450); RED BLOOD CELL COUNT(AUTO) 2.77 MIL/uL (4.5-6.0); WHITE BLOOD COUNT (AUTO) 10.6 K/uL (4.3-11.0)
--- NOTE | 2020-08-12 07:17 | NUR ---
MS RN CLOSING NOTES PATIENT DNR/DNI. COMFORT CARE. PATIENT IN BED. OBTUNDED. IN NON-REBREATHER MASK 15LPM. USED OF ACCESSORY MUSCLES NOTED NO S/S OF FACIAL GRIMACING, MOANING, ETC. THAT COULD INDICATE PAIN. ALL NEEDS ATTENDED. ALL SCHEDULED MEDS ADMINISTERED. SAFETY KEPT IN PLACE THE WHOLE SHIFT: BED IN LOWEST, LOCKED POSITION; CALL LIGHT WITHIN REACH. NO SIGNIFICANT CHANGE SINCE LAST SHIFT. KEEP HOB 40DEGREESAT ALL TIME. WILL ENDORSE CARE TO MORNING SHIFT NURSE.
[2020-08-12 07:32] LABS: ALBUMIN 1.9 g/dL (3.4-5.0); BILIRUBIN,TOTAL 35.6 mg/dL (0.2-1.0); CALCIUM, SERUM 6.9 mg/dL (8.5-10.1); CREATININE 2.9 mg/dL (0.6-1.3); MAGNESIUM 2.2 mg/dL (1.8-2.4); PHOSPHORUS 3.8 mg/dL (2.5-4.9); POTASSIUM 4.1 mmol/L (3.5-5.1)
--- NOTE | 2020-08-12 07:45 | NUR ---
MS RN OPENING NOTES PATIENT DNR/DNI. COMFORT CARE. PATIENT IN BED. OBTUNDED. IN NON-REBREATHER MASK 15LPM. USED OF ACCESSORY MUSCLES NOTED NO S/S OF FACIAL GRIMACING, MOANING, PATIENT IS CALM AND COMFORTABLE. WILL CONTINUE TO MONITOR.
[2020-08-12] MEDS: ALBUTEROL FS 2.5 MG/0.5 ML VIAL.NEB NEB SCH ×3 (07:50→15:24)
[2020-08-12] MEDS: IPRATROPIUM NEB FS 0.5 MG/2.5 ML AMPUL.NEB NEB SCH ×3 (07:50→15:24)
[2020-08-12 08:00] VITALS: BP 108/58
[2020-08-12] MEDS ORDERED: MORPHINE SULFATE INJ 2 MG/ML DISP.SYRIN IV PRN (08:30)
[2020-08-12] MEDS: CLOTRIMAZOLE 1% 15 GM TUBE TP SCH ×2 (08:49→17:47)
[2020-08-12] MEDS: MUPIROCIN OINT 2% 22 GM TUBE NS SCH (08:49)
[2020-08-12 09:40] LABS: TOTAL PROTEIN, SERUM 5.8 g/dL (6.4-8.2)
[2020-08-12] MEDS: IV NS 0.9% 1,000 ML IV PRN (09:43)
--- NOTE | 2020-08-12 12:10 | NUR ---
RN notes Pt. seen having facial griacing and restlessness. Administered 2mg Morphine IV dose. Will continue to monitor.
[2020-08-12 12:34] LABS: LYMPHOCYTES % (MANUAL) 5 % (16-48); MONOCYTES % (MANUAL) 6 % (0-11.0); MYELOCYTES % 1 % (0-0); NEUTROPHILS % (MANUAL) 88 (42-76)
[2020-08-12 16:00] VITALS: BP 114/60
--- NOTE | 2020-08-12 16:37 | NUR ---
RN notes Pt. seen having facial grimacing, labored breathing and restlessness. Administered 2mg Morphine IV dose. Will continue to monitor.
--- NOTE | 2020-08-12 19:25 | NUR ---
MS/RN NOTES PATIENT DISCHARGE TO HOSPICE CARE.
== END 2020-08-12 19:14 | disposition hospice, inpatient (51) | DRG 871 ==
LOC: ER 01:26 → TELE 03:21 → MED 09:48 → ICU 08-09 08:11 → MED 08-11 11:06
PROVIDERS: ADMIT Internal Medicine; ATTEND Nurse Practitioner Acute Care
DX: A41.9 Sepsis, unspecified organism (principal); J96.01 Acute respiratory failure with hypoxia; N17.0 Acute kidney failure with tubular necrosis; J18.9 Pneumonia, unspecified organism; K85.90 Acute pancreatitis without necrosis or infection, unspecified; K65.2 Spontaneous bacterial peritonitis; J44.1 Chronic obstructive pulmonary disease with (acute) exacerbation; E87.1 Hypo-osmolality and hyponatremia; J44.0 Chronic obstructive pulmonary disease with (acute) lower respiratory infection; K76.6 Portal hypertension; D68.9 Coagulation defect, unspecified; E87.2 Acidosis; I47.1 Supraventricular tachycardia; E83.42 Hypomagnesemia; Z20.822 Contact with and (suspected) exposure to COVID-19; Z79.51 Long term (current) use of inhaled steroids; F17.200 Nicotine dependence, unspecified, uncomplicated; Z51.5 Encounter for palliative care; Z66 Do not resuscitate; Z85.46 Personal history of malignant neoplasm of prostate; K70.31 Alcoholic cirrhosis of liver with ascites; N13.9 Obstructive and reflux uropathy, unspecified; K82.8 Other specified diseases of gallbladder; K70.40 Alcoholic hepatic failure without coma; I70.8 Atherosclerosis of other arteries; D53.9 Nutritional anemia, unspecified; D69.6 Thrombocytopenia, unspecified; E27.8 Other specified disorders of adrenal gland; E87.6 Hypokalemia; E87.70 Fluid overload, unspecified; I25.10 Atherosclerotic heart disease of native coronary artery without angina pectoris; K76.0 Fatty (change of) liver, not elsewhere classified; Z85.528 Personal history of other malignant neoplasm of kidney; F10.10 Alcohol abuse, uncomplicated; Y90.9 Presence of alcohol in blood, level not specified
CPT/HCPCS: 31720; 36415; 36600; 71045-TC; 76705-TC; 80048-TC; 80053-TC; 80061-TC; 80076-TC; 80202-TC; 81001; 82140-TC; 82550-TC; 82570-TC; 82803-TC; 83605-TC; 83735-TC; 83970; 84100-TC; 84132-TC; 84155; 84155-TC; 84165; 84300-TC; 84443-TC; 84484-TC; 85025-TC; 85610-TC; 85730-TC; 87040-TC; 87081-TC; 87086-TC; 94760-TC; 94799-TC; A4216; A9563; C9803; G0378; J0153; J2060; J2270; J2543; J2930; J3370; J3475; J3480; J3490; J7030; J7050; J7060; P9047

== ENCOUNTER 2020-08-12 19:50 | Inpatient (IN) | payer OTHER ==
[~2020-08-12] VITALS: Ht 170.2 cm; Wt 71.2 kg
--- NOTE | 2020-08-12 19:15 | NUR ---
MS RN OPENING NOTE PATIENT PREVIOUSLY MS PT, BEING ADMITTED FOR HOSPICE CARE. PATIENT OPENS EYES WITH VERBAL STIMULI. CURRENTLY ON 15 LPM OF OXYGEN SUPPLEMENTATION VIA NON REBREATHER MASK. PATIENT EXPERIENCING SOB, GASPING, AND LABORED BREATHING. PATIENT NOTICEABLY JAUNDICED. PATIENT'S IV SITES PATENT AND INTACT. IV FLUID RUNNING AT 75 ML/ HR. MADRID CATHETER DRAINING TEA COLORED URINE. SAFETY MEASURES IN PLACE. HOB ELEVATED AT ALL TIMES, SIDE RAILS UP, CALL LIGHT WITHIN REACH, BED IN LOCKED AND LOWEST POSITION. WILL MONITOR PATIENT CLOSELY.
[2020-08-12 20:00] VITALS: BP 104/67
[2020-08-12] MEDS ORDERED: MORPHINE SULFATE PF DRIP 250 MG in IV D5W 240 ML IV PRN (20:00)
[2020-08-12] MEDS ORDERED: ATROPINE SULFATE OPHTH SOLN 15 ML BOTTLE SL PRN (20:00)
[2020-08-12] MEDS ORDERED: ACETAMINOPHEN 650 MG/SUPP.RECT RC PRN (20:30)
--- NOTE | 2020-08-12 21:45 | NUR ---
MS RN NOTE MORPHINE DRIP 1 MG/HR ON ENVIRONMENTAL SERVICES ASSISTANT PUMP STARTED.
--- NOTE | 2020-08-13 03:57 | NUR ---
MS RN NOTE MORPHINE DRIP INCREASED TO 2 MG/HR.
--- NOTE | 2020-08-13 05:13 | NUR ---
MS RN NOTE MORPHINE DRIP INCREASED TO 3 MG/HR FOR SOB AND RESPIRATION OF 26.
--- NOTE | 2020-08-13 06:57 | NUR ---
MS RN CLOSING NOTE PATIENT OBTUNDED, CURRENTLY ON 15 LPM OF OXYGEN SUPPLEMENTATION VIA NON REBREATHER MASK. PATIENT GASPING AND HAS LABORED BREATHING. MORPHINE DRIP RUNNING 3 ML/HR, RESPIRATION 12 BREATHS/MIN. RAC 20 G PATENT AND INTACT. PATIENT NOTICEABLY JAUNDICED THROUGHOUT THE BODY. MADRID CATHETER DRAINING TEA COLORED URINE. SAFETY MEASURES IN PLACE. HOB ELEVATED AT ALL TIMES, SIDE RAILS UP, CALL LIGHT WITHIN REACH, BED IN LOCKED AND LOWEST POSITION. ALL NEEDS MET AND ATTENDED. WILL ENDORSE TO DAY SHUIFT NURSE FOR CECILIO.
[2020-08-13 08:00] VITALS: BP 89/56
--- NOTE | 2020-08-13 08:02 | NUR ---
TRANSITIONAL CARE LIAISON OPENING NOTE PATIENT IS ON HOSPICE. PATIENT IS IN BED RESTING, PATIENT IS IN NO DISTRESS. PATIENT HAS BREATHING OF 23 BREATH PER MINUTE. PATIENT IS ON PORTER BATH PUMP WITH MORPHINE. PATIENT HAS MADRID CATHETER. SAFETY PRECAUTIONS ARE ON, BED IS LOCKED IN THE LOWEST POSITION, SIDE RAILS ARE UP. CALL LIGHT WITHIN REACH. WILL CONTINUE TO MONITOR CLOSELY THROUGHOUT THE SHIFT.
--- NOTE | 2020-08-13 14:10 | NUR ---
MS WET INSPECTOR OPTICAL GLASS NOTE PATIENT AT 14:10, TIME OF AND VERIFIED BY TWO NURSES NAE AND MAGED CHARGE NURSE. IV LINES REMOVED, MADRID CATHETER REMOVED, POSTMORTEM CARE PROVIDED, TAGS PLACED. MD JORGE YUEN NOTIFIED. FAMILY NOTIFIED. M[employer] AND [employer] NOTIFIED. PATIENT WAS ON MORPHINE DRIP VIA AGRONOMY TEACHER PUMP DISCONTINUED. PATIENT WAS TRANSFERRED TO [facility]IA [facility].
[2020-08-13] MEDS ORDERED: KEY,NONCONTROL,TO KEEP IN PYXI 1 EA MC ONE (16:53)
== END 2020-08-13 14:10 | DRG 871 ==
LOC: HOSPICE 19:50
PROVIDERS: ADMIT Nurse Practitioner Acute Care; ATTEND Nurse Practitioner Acute Care
DX: A41.9 Sepsis, unspecified organism (principal); K65.2 Spontaneous bacterial peritonitis; J96.01 Acute respiratory failure with hypoxia; R18.8 Other ascites; N17.9 Acute kidney failure, unspecified; E87.1 Hypo-osmolality and hyponatremia; J44.1 Chronic obstructive pulmonary disease with (acute) exacerbation; K76.6 Portal hypertension; N13.30 Unspecified hydronephrosis; E87.2 Acidosis; I47.1 Supraventricular tachycardia; K72.90 Hepatic failure, unspecified without coma; K74.60 Unspecified cirrhosis of liver; I25.10 Atherosclerotic heart disease of native coronary artery without angina pectoris; I10 Essential (primary) hypertension; J44.9 Chronic obstructive pulmonary disease, unspecified; D53.9 Nutritional anemia, unspecified; F17.200 Nicotine dependence, unspecified, uncomplicated; Z66 Do not resuscitate; Z51.5 Encounter for palliative care; Z79.51 Long term (current) use of inhaled steroids; Z79.899 Other long term (current) drug therapy; I70.0 Atherosclerosis of aorta; K82.8 Other specified diseases of gallbladder; E87.6 Hypokalemia; K86.9 Disease of pancreas, unspecified; N13.9 Obstructive and reflux uropathy, unspecified; E83.42 Hypomagnesemia; Z85.46 Personal history of malignant neoplasm of prostate; E87.70 Fluid overload, unspecified
CPT/HCPCS: 87081-TC; G0378; J2274; J7060